=== PATIENT | female | born 1960 | race Caucasian/White ===

== ENCOUNTER 2018-01-26 23:38 | Emergency (ER) | payer MEDICARE ==
--- NOTE | 2018-01-27 07:23 | CT ---
CT HEAD NONCONTRAST: Date: 01/26/18 CLINICAL HISTORY: Injury, head pain. FINDINGS: There is a focal scalp hematoma at the posterior right parietal region. Mild chronic ischemic disease of the cerebral white matter is present. There is mild parenchymal volume loss, advanced or patient' s age, with a slight degree of ex vacuo dilatation of the ventricular system. No acute intracranial h emorrhage, mass effect, or midline shift. There is an atelectatic, partially imaged right maxillary s inus. Scattered mild mucosal thickening of the paranasal sinuses is seen. IMPRESSION: 1. No acute intracranial hemorrhage or mass effect. 2. Right parietal scalp hematoma with associated high density debris. Correlate clinically. POS: [facility]
== END 2018-01-27 01:13 | disposition home or self-care (01) ==
LOC: BURERS 23:38
DX: S00.03XA Contusion of scalp, initial encounter (principal); J44.9 Chronic obstructive pulmonary disease, unspecified; I10 Essential (primary) hypertension; E03.9 Hypothyroidism, unspecified; Z99.2 Dependence on renal dialysis; Z79.899 Other long term (current) drug therapy; W19.XXXA Unspecified fall, initial encounter
CPT/HCPCS: 70450

== ENCOUNTER 2018-05-10 13:57 | Emergency (ER) | payer MEDICARE ==
[2018-05-10] MEDS ORDERED: Triple Antibiotic Oint 1 GM Packet ONE (14:19)
[2018-05-10] MEDS ORDERED: Sulfameth/Trimethoprim DS 800-160mg TAB ONE (14:45)
--- NOTE | 2018-05-10 21:05 | RAD ---
LEFT KNEE FOUR VIEWS: 05/10/2018 FINDINGS: No fracture or joint effusion is seen. The joint space appears normal. Dense arterial calcification s are present, especially in the popliteal artery. Additionally, there is an abundance of subcutaneo us calcification throughout the skin, especially posteriorly. Typical causes would include autoimmun e diseases, such as dermatomyositis or lupus. IMPRESSION: 1. No acute traumatic changes. 2. Numerous skin calcifications. POS: [facility]
--- NOTE | 2018-05-10 21:09 | RAD ---
LEFT ELBOW FOUR VIEWS: 05/10/2018 FINDINGS: There are numerous skin calcifications in this patient, which partially obscure the bone. This decre ases the sensitivity of the study. No large fractures are seen. There is probable a very small join t effusion. Surgical clips are seen in the cubital fossa region. Arterial calcifications are presen t. IMPRESSION: 1. Low sensitivity study, suggesting a small joint effusion, but no definite fracture. If pain pers ists, follow-up images might be needed. 2. Numerous dense skin calcifications. Considerations might include dermatomyositis, lupus, or diso rders of calcium and phosphorus metabolism. Secondary renal osteodystrophy might be a cause. POS: HOME
== END 2018-05-10 14:55 | disposition home or self-care (01) ==
LOC: BURERS 13:57
DX: S51.012A Laceration without foreign body of left elbow, initial encounter (principal); S61.211A Laceration without foreign body of left index finger without damage to nail, initial encounter; S80.02XA Contusion of left knee, initial encounter; E03.9 Hypothyroidism, unspecified; N18.6 End stage renal disease; J44.9 Chronic obstructive pulmonary disease, unspecified; M19.90 Unspecified osteoarthritis, unspecified site; Z87.891 Personal history of nicotine dependence; Z79.899 Other long term (current) drug therapy; Z79.891 Long term (current) use of opiate analgesic; Z79.51 Long term (current) use of inhaled steroids; W06.XXXA Fall from bed, initial encounter